=== PATIENT | female | born 1950 | race Caucasian/White ===

== ENCOUNTER 2023-04-24 12:57 | Inpatient (IN) | payer OTHER ==
[~2023-04-24] VITALS: Ht 149.9 cm; Wt 42.6 kg
[2023-04-24] MEDS: cefTRIAXone 2,000 MG in DEXTROSE 5% 100 ML IV ONE ×2 (09:55→21:55)
[~2023-04-24 12:57] MED LIST: GLIP10TA12 PO; LISI10TA2 PO; PRAV20TA46 PO; ROSI4TAB PO
[2023-04-24 13:32] VITALS: BP 79/45; PULSE 104; RESP 18; TEMP 98.7
[2023-04-24] MEDS ORDERED: NACL 0.9% 1,000 ML IV SCH (13:50)
[2023-04-24 14:28] LABS: BASOPHILS % (AUTO) 0.2 % (0.0-2.0); EOSINOPHILS # (AUTO) 0.3 K/uL (0-0.4); EOSINOPHILS % (AUTO) 2.9 % (0.0-4.0); HEMATOCRIT 40.3 % (36-48); HEMOGLOBIN 13.1 g/dL (12.0-16.0); LYMPHOCYTES # (AUTO) 0.8 K/uL (2.5-16.5); LYMPHOCYTES % (AUTO) 8.2 % (20.5-51.1); MEAN CORPUSCULAR HEMOGLOBIN 29 pg (27-31); MEAN CORPUSCULAR HGB CONC 33 g/dL (33-37); MEAN CORPUSCULAR VOLUME 87.8 fL (80-94); MONOCYTES # (AUTO) 0.3 K/uL (0.8-1.0); MONOCYTES % (AUTO) 2.7 % (1.7-9.3); NEUTROPHILS # (AUTO) 8.8 K/uL (1.8-7.7); PLATELET COUNT (AUTO) 260 K/uL (140-450); RED BLOOD CELL COUNT(AUTO) 4.59 MIL/uL (4.20-5.40); RED CELL DISTRIBUTION WIDTH 14.3 % (11.6-13.7); WHITE BLOOD COUNT (AUTO) 10.2 K/uL (4.8-10.8)
[2023-04-24 14:47] LABS: ALANINE AMINOTRANSFERASE 22 U/L (12-78); ALBUMIN 2.6 g/dL (3.4-5.0); ALKALINE PHOSPHATASE 75 U/L (50-136); ANION GAP 14.1 (8-16); ASPARTATE AMINOTRANSFERASE 18 U/L (15-37); CALCIUM 8.4 mg/dL (8.5-10.1); CARBON DIOXIDE 22.3 mmol/L (21-32); CHLORIDE 100 mmol/L (98-107); CREATININE 2.3 mg/dL (0.6-1.3); GLUCOSE 303 mg/dL (74-106); POTASSIUM 4.4 mmol/L (3.5-5.1); SODIUM SERUM 132 mmol/L (136-145); TOTAL BILIRUBIN 0.2 mg/dL (0.0-1.0); TOTAL PROTEIN, SERUM 6.7 g/dL (6.4-8.2)
[2023-04-24 14:51] LABS: CREATINE KINASE, TOTAL 100 U/L (26-192)
[2023-04-24 14:55] LABS: UREA NITROGEN, BLOOD 66 mg/dL (7-18)
[2023-04-24 14:56] LABS: LACTIC ACID 3.7 mmol/L (0.4-2.0)
[2023-04-24] MEDS ORDERED: NACL 0.9% 1,000 ML IV ONE (15:10)
[2023-04-24] MEDS ORDERED: ICOS1SGL PO (16:20)
[2023-04-24] MEDS ORDERED: LOSA25TA43 PO (16:20)
[2023-04-24] MEDS ORDERED: EMPA25TA PO (16:20)
[2023-04-24] MEDS ORDERED: METF-346 PO (16:20)
[2023-04-24] MEDS ORDERED: ATOR20TA PO (16:20)
[2023-04-24 17:37] LABS: APPEARANCE,URINE CLEAR (CLEAR); BILIRUBIN,URINE NEGATIVE (NEGATIVE); BLOOD, URINE NEGATIVE (NEGATIVE); COLOR,URINE YELLOW (YELLOW); LEUKOCYTE ESTERASE ,URINE NEGATIVE (NEGATIVE); NITRITE, URINE NEGATIVE (NEGATIVE); PROTEIN,URINE NEGATIVE (NEGATIVE); UGLUCOSE 3+ (NEGATIVE); UROBILINOGEN,URINE 0.2 EU/dL (0.2 - 1)
[2023-04-24] MEDS ORDERED: NOREPINEPHRINE 16 MG in DEXTROSE 5% 250 ML IV PRN (17:40)
[2023-04-24] MEDS ORDERED: NOREPINEPHRINE 4 MG in DEXTROSE 5% 250 ML IV ONE (17:45)
[2023-04-24] MEDS ORDERED: NOREPINEPHRINE 4 MG in DEXTROSE 5% 250 ML IV PRN (17:46)
[2023-04-24] MEDS ORDERED: DEXTROSE 50% 50 ML SYR IVP PRN (18:05)
[2023-04-24] MEDS ORDERED: MORPHINE SULFATE 2 MG/ML SYR IVP PRN (18:05)
[2023-04-24] MEDS ORDERED: DOCUSATE SODIUM 100 MG GELCAP PO PRN (18:05)
[2023-04-24] MEDS ORDERED: ONDANSETRON 4 MG/2 ML VIAL IVP PRN (18:05)
[2023-04-24] MEDS ORDERED: LORazepam 2 MG/ML VIAL IVP PRN (18:05)
[2023-04-24] MEDS ORDERED: ZOLPIDEM 5 MG TAB PO PRN (18:15)
[2023-04-24 20:00] VITALS: BP_SYST 101; BP_SYST 121; BP_DIAS 48; BP_DIAS 65; PULSE 105; PULSE 106; PULSE 82; PULSE 83; RESP 14; RESP 18; RESP 20; TEMP 96.7; TEMP 98.7; O2SAT 100; O2SAT 98
[2023-04-24 21:00] VITALS: BP 115/64; PULSE 68; RESP 12; O2SAT 100
[2023-04-24] MEDS: BLOOD GLUCOSE MONITORING 1 DEV DEV FS SCH (21:09)
[2023-04-24] MEDS ORDERED: cefTRIAXone 2,000 MG VIAL ONE (21:39)
[2023-04-24] MEDS: INSULIN LISPRO SLIDING SCALE 100 UNITS/ML VIAL SUBQ PRN (21:53)
[2023-04-24] MEDS: NACL 0.9% 1,000 ML IV SCH (21:59)
[2023-04-24 22:00] VITALS: BP 95/53; PULSE 98; RESP 17; O2SAT 98
[2023-04-24 23:00] VITALS: BP 87/44; PULSE 75; RESP 12; O2SAT 100
[2023-04-25] VITALS (23 sets, daily range): BP systolic 89–130; BP diastolic 41–77; PULSE 60–96; RESP 10–25; TEMP 96.4–97.8; O2SAT 96–100
[2023-04-25 04:39] LABS: HEMATOCRIT 31.9 % (36-48); HEMOGLOBIN 10.4 g/dL (12.0-16.0); MEAN CORPUSCULAR HEMOGLOBIN 28 pg (27-31); MEAN CORPUSCULAR HGB CONC 33 g/dL (33-37); MEAN CORPUSCULAR VOLUME 87.3 fL (80-94); PLATELET COUNT (AUTO) 234 K/uL (140-450); RED BLOOD CELL COUNT(AUTO) 3.66 MIL/uL (4.20-5.40); RED CELL DISTRIBUTION WIDTH 14.1 % (11.6-13.7); WHITE BLOOD COUNT (AUTO) 9.9 K/uL (4.8-10.8)
[2023-04-25 04:51] LABS: ANION GAP 10.5 (8-16); CALCIUM 7.4 mg/dL (8.5-10.1); CARBON DIOXIDE 22.9 mmol/L (21-32); CHLORIDE 111 mmol/L (98-107); CREATININE 1.2 mg/dL (0.6-1.3); GLUCOSE 166 mg/dL (74-106); POTASSIUM 3.4 mmol/L (3.5-5.1); SODIUM SERUM 141 mmol/L (136-145); UREA NITROGEN, BLOOD 43 mg/dL (7-18)
[2023-04-25 05:15] LABS: LYMPHOCYTES % (MANUAL) 13 % (20-46)
[2023-04-25 05:16] LABS: BASOPHILS % (MANUAL) 1 % (0-2); EOSINOPHILS % (MANUAL) 1 % (0-4); METAMYELOCYTES % 1 % (0-0); MONOCYTES % (MANUAL) 6 % (5-12); SMUDGE CELLS FEW
[2023-04-25] MEDS: BLOOD GLUCOSE MONITORING 1 DEV DEV FS SCH ×4 (07:05→20:11)
[2023-04-25] MEDS: MAG SULF 2000 MG/WATER PREMIX 50 ML IV PRN ×2 (07:56→15:31)
[2023-04-25] MEDS: POTASSIUM CHLORIDE 10 MEQ TABER PO PRN (08:00)
[2023-04-25] MEDS: NACL 0.9% 1,000 ML IV SCH ×2 (08:23→11:10)
[2023-04-25] MEDS: ATORVASTATIN 20 MG TAB PO SCH (09:34)
[2023-04-25 13:27] LABS: ALANINE AMINOTRANSFERASE 19 U/L (12-78); ALKALINE PHOSPHATASE 66 U/L (50-136); ANION GAP 10.6 (8-16); ASPARTATE AMINOTRANSFERASE 16 U/L (15-37); CALCIUM 7.7 mg/dL (8.5-10.1); CARBON DIOXIDE 22.3 mmol/L (21-32); CHLORIDE 111 mmol/L (98-107); GLUCOSE 212 mg/dL (74-106); MAGNESIUM 1.5 mg/dL (1.8-2.4); POTASSIUM 3.9 mmol/L (3.5-5.1); SODIUM SERUM 140 mmol/L (136-145); TOTAL BILIRUBIN 0.1 mg/dL (0.0-1.0); TOTAL PROTEIN, SERUM 5.7 g/dL (6.4-8.2); UREA NITROGEN, BLOOD 34 mg/dL (7-18)
[2023-04-25] MEDS: AZITHROMYCIN 500 MG in DEXTROSE 5% 250 ML IV SCH (13:45)
[2023-04-25] MEDS: INSULIN LISPRO SLIDING SCALE 100 UNITS/ML VIAL SUBQ PRN ×3 (16:38→20:19)
[2023-04-25] MEDS: MIDODRINE 5 MG TAB PO SCH (17:41)
[2023-04-25] MEDS ORDERED: MIDODRINE 5 MG TAB PO SCH (19:00)
[2023-04-26] VITALS (20 sets, daily range): BP systolic 90–132; BP diastolic 40–63; PULSE 52–78; RESP 12–20; TEMP 96.4–97.8; O2SAT 97–100
[2023-04-26] MEDS: NACL 0.9% 1,000 ML IV SCH ×2 (00:49→22:44)
[2023-04-26 05:03] LABS: ANION GAP 10.8 (8-16); CALCIUM 7.2 mg/dL (8.5-10.1); CARBON DIOXIDE 22.6 mmol/L (21-32); CHLORIDE 113 mmol/L (98-107); CREATININE 0.7 mg/dL (0.6-1.3); GLUCOSE 137 mg/dL (74-106); POTASSIUM 3.4 mmol/L (3.5-5.1); SODIUM SERUM 143 mmol/L (136-145); UREA NITROGEN, BLOOD 25 mg/dL (7-18)
[2023-04-26 05:41] LABS: BASOPHILS % (AUTO) 0.2 % (0.0-2.0); EOSINOPHILS # (AUTO) 0.3 K/uL (0-0.4); EOSINOPHILS % (AUTO) 3.6 % (0.0-4.0); HEMATOCRIT 26.4 % (36-48); HEMOGLOBIN 8.8 g/dL (12.0-16.0); LYMPHOCYTES # (AUTO) 0.9 K/uL (2.5-16.5); LYMPHOCYTES % (AUTO) 12.2 % (20.5-51.1); MEAN CORPUSCULAR HEMOGLOBIN 29 pg (27-31); MEAN CORPUSCULAR HGB CONC 33 g/dL (33-37); MEAN CORPUSCULAR VOLUME 87.4 fL (80-94); MONOCYTES # (AUTO) 0.4 K/uL (0.8-1.0); MONOCYTES % (AUTO) 4.7 % (1.7-9.3); NEUTROPHILS # (AUTO) 6.1 K/uL (1.8-7.7); NEUTROPHILS % (AUTO) 79.3 % (42.2-75.2); PLATELET COUNT (AUTO) 199 K/uL (140-450); RED BLOOD CELL COUNT(AUTO) 3.02 MIL/uL (4.20-5.40); RED CELL DISTRIBUTION WIDTH 13.9 % (11.6-13.7); WHITE BLOOD COUNT (AUTO) 7.7 K/uL (4.8-10.8)
[2023-04-26] MEDS: POTASSIUM CHLORIDE 10 MEQ TABER PO PRN (05:42)
[2023-04-26] MEDS: MAG SULF 2000 MG/WATER PREMIX 50 ML IV PRN (05:43)
[2023-04-26] MEDS: BLOOD GLUCOSE MONITORING 1 DEV DEV FS SCH ×4 (06:54→21:00)
[2023-04-26] MEDS: MIDODRINE 5 MG TAB PO SCH ×3 (08:45→17:06)
[2023-04-26] MEDS: PANTOPRAZOLE 40 MG INJ VIAL IVP SCH (08:48)
[2023-04-26] MEDS: ATORVASTATIN 20 MG TAB PO SCH (08:48)
[2023-04-26] MEDS: AZITHROMYCIN 500 MG in DEXTROSE 5% 250 ML IV SCH (12:38)
[2023-04-26] MEDS: INSULIN LISPRO SLIDING SCALE 100 UNITS/ML VIAL SUBQ PRN ×2 (12:40→22:07)
[2023-04-27] VITALS (8 sets, daily range): BP systolic 88–128; BP diastolic 42–62; PULSE 48–75; RESP 18; TEMP 97.8–98.3; O2SAT 98–100
[2023-04-27] MEDS: ACETAMINOPHEN 325 MG TAB PO PRN ×2 (01:27→02:58)
[2023-04-27] MEDS: NACL 0.9% 1,000 ML IV SCH ×3 (03:17→17:41)
[2023-04-27 06:50] LABS: BASOPHILS # (AUTO) 0.1 K/uL (0.00-0.22); BASOPHILS % (AUTO) 1.2 % (0.0-2.0); EOSINOPHILS # (AUTO) 1.3 K/uL (0-0.4); EOSINOPHILS % (AUTO) 15.3 % (0.0-4.0); HEMATOCRIT 30.4 % (36-48); LYMPHOCYTES # (AUTO) 1.4 K/uL (2.5-16.5); LYMPHOCYTES % (AUTO) 16.1 % (20.5-51.1); MEAN CORPUSCULAR HEMOGLOBIN 29 pg (27-31); MEAN CORPUSCULAR HGB CONC 33 g/dL (33-37); MEAN CORPUSCULAR VOLUME 86.8 fL (80-94); MONOCYTES # (AUTO) 0.4 K/uL (0.8-1.0); MONOCYTES % (AUTO) 4.8 % (1.7-9.3); NEUTROPHILS # (AUTO) 5.4 K/uL (1.8-7.7); NEUTROPHILS % (AUTO) 62.6 % (42.2-75.2); PLATELET COUNT (AUTO) 210 K/uL (140-450); RED CELL DISTRIBUTION WIDTH 13.9 % (11.6-13.7); WHITE BLOOD COUNT (AUTO) 8.7 K/uL (4.8-10.8)
[2023-04-27 06:55] LABS: ANION GAP 10.9 (8-16); CALCIUM 7.8 mg/dL (8.5-10.1); CARBON DIOXIDE 24.4 mmol/L (21-32); CHLORIDE 111 mmol/L (98-107); CREATININE 0.8 mg/dL (0.6-1.3); GLUCOSE 129 mg/dL (74-106); POTASSIUM 4.3 mmol/L (3.5-5.1); SODIUM SERUM 142 mmol/L (136-145); UREA NITROGEN, BLOOD 21 mg/dL (7-18)
[2023-04-27] MEDS: BLOOD GLUCOSE MONITORING 1 DEV DEV FS SCH ×4 (07:30→21:16)
[2023-04-27] MEDS: MIDODRINE 5 MG TAB PO SCH ×3 (08:53→17:30)
[2023-04-27] MEDS: ATORVASTATIN 20 MG TAB PO SCH (08:53)
[2023-04-27] MEDS: INSULIN LISPRO SLIDING SCALE 100 UNITS/ML VIAL SUBQ PRN ×3 (12:47→21:21)
[2023-04-27] MEDS: PANTOPRAZOLE 40 MG INJ VIAL IVP SCH (12:58)
[2023-04-27] MEDS: AZITHROMYCIN 500 MG in DEXTROSE 5% 250 ML IV SCH (12:58)
[2023-04-27] MEDS ORDERED: MIDODRINE 5 MG TAB ONE (17:34)
[2023-04-28] VITALS (7 sets, daily range): BP systolic 101–132; BP diastolic 40–57; PULSE 47–86; RESP 16–18; TEMP 96.1–98.1; O2SAT 96–100
[2023-04-28] MEDS: MAG SULF 2000 MG/WATER PREMIX 50 ML IV PRN (00:04)
[2023-04-28 06:35] LABS: HEMATOCRIT 34.4 % (36-48); HEMOGLOBIN 11.5 g/dL (12.0-16.0); MEAN CORPUSCULAR HEMOGLOBIN 29 pg (27-31); MEAN CORPUSCULAR HGB CONC 33 g/dL (33-37); MEAN CORPUSCULAR VOLUME 86.9 fL (80-94); PLATELET COUNT (AUTO) 278 K/uL (140-450); RED BLOOD CELL COUNT(AUTO) 3.96 MIL/uL (4.20-5.40); RED CELL DISTRIBUTION WIDTH 13.6 % (11.6-13.7); WHITE BLOOD COUNT (AUTO) 9.7 K/uL (4.8-10.8)
[2023-04-28 07:00] LABS: ANION GAP 13.1 (8-16); CARBON DIOXIDE 25.1 mmol/L (21-32); CHLORIDE 107 mmol/L (98-107); CREATININE 0.9 mg/dL (0.6-1.3); GLUCOSE 133 mg/dL (74-106); POTASSIUM 4.2 mmol/L (3.5-5.1); SODIUM SERUM 141 mmol/L (136-145); UREA NITROGEN, BLOOD 16 mg/dL (7-18)
[2023-04-28 07:16] LABS: MONOCYTES % (MANUAL) 7 % (5-12)
[2023-04-28 07:17] LABS: EOSINOPHILS % (MANUAL) 22 % (0-4)
[2023-04-28 07:19] LABS: LYMPHOCYTES % (MANUAL) 17 % (20-46)
[2023-04-28] MEDS: BLOOD GLUCOSE MONITORING 1 DEV DEV FS SCH ×4 (07:47→21:02)
[2023-04-28] MEDS: PANTOPRAZOLE 40 MG INJ VIAL IVP SCH (09:02)
[2023-04-28] MEDS: ATORVASTATIN 20 MG TAB PO SCH (09:38)
[2023-04-28] MEDS: MIDODRINE 5 MG TAB PO SCH ×3 (09:38→17:00)
[2023-04-28] MEDS: INSULIN LISPRO SLIDING SCALE 100 UNITS/ML VIAL SUBQ PRN ×3 (12:05→21:17)
[2023-04-28] MEDS: AZITHROMYCIN 500 MG in DEXTROSE 5% 250 ML IV SCH (14:01)
[2023-04-29] VITALS: BP 90/42; PULSE 62; RESP 18; TEMP 98.2; O2SAT 98
[2023-04-29 04:00] VITALS: BP 97/48; PULSE 61; PULSE 70; RESP 18; TEMP 98.6; O2SAT 96
[2023-04-29 06:44] LABS: HEMATOCRIT 35.3 % (36-48); HEMOGLOBIN 11.5 g/dL (12.0-16.0); MEAN CORPUSCULAR HEMOGLOBIN 29 pg (27-31); MEAN CORPUSCULAR HGB CONC 33 g/dL (33-37); MEAN CORPUSCULAR VOLUME 87.6 fL (80-94); PLATELET COUNT (AUTO) 273 K/uL (140-450); RED BLOOD CELL COUNT(AUTO) 4.02 MIL/uL (4.20-5.40); RED CELL DISTRIBUTION WIDTH 13.8 % (11.6-13.7); WHITE BLOOD COUNT (AUTO) 12.3 K/uL (4.8-10.8)
[2023-04-29 07:11] LABS: ANION GAP 10.6 (8-16); CALCIUM 8.3 mg/dL (8.5-10.1); CARBON DIOXIDE 26.2 mmol/L (21-32); CHLORIDE 109 mmol/L (98-107); CREATININE 0.8 mg/dL (0.6-1.3); GLUCOSE 148 mg/dL (74-106); POTASSIUM 4.8 mmol/L (3.5-5.1); SODIUM SERUM 141 mmol/L (136-145); UREA NITROGEN, BLOOD 15 mg/dL (7-18)
[2023-04-29 07:16] LABS: MAGNESIUM 1.3 mg/dL (1.8-2.4); PHOSPHORUS 3.4 mg/dL (2.5-4.9)
[2023-04-29] MEDS: BLOOD GLUCOSE MONITORING 1 DEV DEV FS SCH ×2 (07:22→11:49)
[2023-04-29 07:33] LABS: EOSINOPHILS % (MANUAL) 20 % (0-4); LYMPHOCYTES % (MANUAL) 18 % (20-46); MONOCYTES % (MANUAL) 6 % (5-12)
[2023-04-29 08:00] VITALS: BP 111/70; PULSE 71; PULSE 81; RESP 18; TEMP 98.6; O2SAT 95
[2023-04-29] MEDS: ATORVASTATIN 20 MG TAB PO SCH (08:48)
[2023-04-29] MEDS: MIDODRINE 5 MG TAB PO SCH ×2 (08:49→12:07)
[2023-04-29] MEDS: PANTOPRAZOLE 40 MG INJ VIAL IVP SCH (08:49)
[2023-04-29] MEDS: MAG SULF 2000 MG/WATER PREMIX 50 ML IV PRN (09:01)
[2023-04-29] MEDS ORDERED: LEVO750T75 PO (11:31)
[2023-04-29] MEDS: INSULIN LISPRO SLIDING SCALE 100 UNITS/ML VIAL SUBQ PRN (11:55)
[2023-04-29] MEDS: AZITHROMYCIN 500 MG in DEXTROSE 5% 250 ML IV SCH (12:05)
[2023-04-29 13:21] VITALS: BP 111/70; PULSE 71; RESP 18; TEMP 98.6
== END 2023-04-29 14:15 | disposition home or self-care (01) | DRG 871 ==
LOC: MED 12:57 → MIC 17:50 → MTU 04-26 19:03
PROVIDERS: ADMIT General Practice; ATTEND General Practice
PROC: 02HV33Z Insertion of Infusion Device into Superior Vena Cava, Percutaneous Approach (ICD-10-PCS; principal; 2023-04-25)
DX: A41.9 Sepsis, unspecified organism (principal); E43 Unspecified severe protein-calorie malnutrition; J18.9 Pneumonia, unspecified organism; N17.0 Acute kidney failure with tubular necrosis; R65.21 Severe sepsis with septic shock; Z68.1 Body mass index [BMI] 19.9 or less, adult; G93.49 Other encephalopathy; E87.1 Hypo-osmolality and hyponatremia; Z66 Do not resuscitate; E78.5 Hyperlipidemia, unspecified; N28.1 Cyst of kidney, acquired; E11.65 Type 2 diabetes mellitus with hyperglycemia; E86.1 Hypovolemia; E83.42 Hypomagnesemia; E87.6 Hypokalemia; E86.0 Dehydration; F79 Unspecified intellectual disabilities
CPT/HCPCS: 36415; 71045; 76770; 80048; 80053; 81003; 82272; 82550; 82948; 83036; 83605; 83735; 83880; 84100; 84484; 85025; 87040; 87081; 87086; 93005; 96360; 96361; 96374; 97116; 97163-GP; 97530; 99291; C9113; J0456; J0696; J1644; J1815; J3475; J3490; J7060; Q0092

== ENCOUNTER 2023-06-23 22:08 | Emergency (ER) | payer OTHER ==
[~2023-06-23] VITALS: Ht 160 cm; Wt 43.1 kg
[~2023-06-23 22:08] MED LIST changes: +ATOR20TA PO; +EMPA25TA PO; -GLIP10TA12 PO; +ICOS1SGL PO; +LEVO750T75 PO; -LISI10TA2 PO; +LOSA25TA43 PO; +METF-346 PO; -PRAV20TA46 PO; -ROSI4TAB PO
[2023-06-23 22:19] VITALS: BP 127/62; PULSE 75; RESP 16; TEMP 97.1; O2SAT 98
[2023-06-24 00:49] LABS: BASOPHILS # (AUTO) 0.1 K/uL (0.00-0.22); HEMOGLOBIN 12.9 g/dL (12.0-16.0); LYMPHOCYTES # (AUTO) 1.3 K/uL (2.5-16.5); NEUTROPHILS # (AUTO) 6.9 K/uL (1.8-7.7); NEUTROPHILS % (AUTO) 64.1 % (42.2-75.2); PLATELET COUNT (AUTO) 280 K/uL (140-450)
[2023-06-24 00:59] LABS: BASOPHILS % (AUTO) 0.5 % (0.0-2.0); EOSINOPHILS % (AUTO) 18.9 % (0.0-4.0); HEMATOCRIT 39.6 % (36-48); MEAN CORPUSCULAR HEMOGLOBIN 29 pg (27-31); MEAN CORPUSCULAR HGB CONC 33 g/dL (33-37); MEAN CORPUSCULAR VOLUME 88.2 fL (80-94); MONOCYTES # (AUTO) 0.5 K/uL (0.8-1.0); MONOCYTES % (AUTO) 4.5 % (1.7-9.3); RED BLOOD CELL COUNT(AUTO) 4.49 MIL/uL (4.20-5.40); RED CELL DISTRIBUTION WIDTH 14.8 % (11.6-13.7); WHITE BLOOD COUNT (AUTO) 10.7 K/uL (4.8-10.8)
[2023-06-24 01:08] LABS: LACTIC ACID 1.8 mmol/L (0.4-2.0)
[2023-06-24 01:15] LABS: ALANINE AMINOTRANSFERASE 18 U/L (12-78); ALBUMIN 3.5 g/dL (3.4-5.0); ALKALINE PHOSPHATASE 120 U/L (50-136); ANION GAP 12.7 (8-16); ASPARTATE AMINOTRANSFERASE 27 U/L (15-37); CALCIUM 8.9 mg/dL (8.5-10.1); CARBON DIOXIDE 28.4 mmol/L (21-32); CHLORIDE 99 mmol/L (98-107); CREATININE 0.9 mg/dL (0.6-1.3); GLUCOSE 155 mg/dL (74-106); POTASSIUM 4.1 mmol/L (3.5-5.1); SODIUM SERUM 136 mmol/L (136-145); TOTAL BILIRUBIN 0.4 mg/dL (0.0-1.0); TOTAL PROTEIN, SERUM 7.6 g/dL (6.4-8.2); UREA NITROGEN, BLOOD 18 mg/dL (7-18)
[2023-06-24 01:18] LABS: APPEARANCE,URINE CLEAR (CLEAR); BILIRUBIN,URINE NEGATIVE (NEGATIVE); BLOOD, URINE NEGATIVE (NEGATIVE); COLOR,URINE YELLOW (YELLOW); LEUKOCYTE ESTERASE ,URINE 1+ (NEGATIVE); NITRITE, URINE NEGATIVE (NEGATIVE); PROTEIN,URINE NEGATIVE (NEGATIVE); UGLUCOSE 3+ (NEGATIVE); UROBILINOGEN,URINE 0.2 EU/dL (0.2 - 1)
[2023-06-24 01:23] LABS: BACTERIA,URINE 10-30 (MOD) /HPF (None Seen); RBC,URINE 0-5 /HPF (0-5)
[2023-06-24 01:24] LABS: MUCUS,URINE 1+ /LPF (None Seen); SQUAMOUS EPITHELIAL CELL,UR 0-3 (FEW) /LPF (0-3 (FEW))
[2023-06-24] MEDS ORDERED: CIPR500T4 PO (03:08)
[2023-06-24] MEDS ORDERED: cefTRIAXone 1,000 MG VIAL ONE (03:13)
== END 2023-06-24 03:15 | disposition home or self-care (01) ==
LOC: MED 22:08
DX: S01.511A Laceration without foreign body of lip, initial encounter (principal); N39.0 Urinary tract infection, site not specified; L30.9 Dermatitis, unspecified; E11.9 Type 2 diabetes mellitus without complications; I10 Essential (primary) hypertension; Z79.899 Other long term (current) drug therapy; Z79.2 Long term (current) use of antibiotics; W18.39XA Other fall on same level, initial encounter; Y92.89 Other specified places as the place of occurrence of the external cause; Y93.89 Activity, other specified; Y99.8 Other external cause status
CPT/HCPCS: 36415; 70450; 71045; 72125; 72192; 80053; 81001; 83605; 85025; 87040; 87086; 93005; 96365; 99285; J0696

== ENCOUNTER 2023-08-05 08:58 | Inpatient (IN) | payer OTHER ==
[~2023-08-05] VITALS: Ht 152.4 cm; Wt 40.8 kg
[~2023-08-05 08:58] MED LIST changes: +CIPR500T4 PO
[2023-08-05 09:29] VITALS: BP 116/65; PULSE 78; RESP 18; TEMP 96.8; O2SAT 97
[2023-08-05 11:14] LABS: BASOPHILS % (AUTO) 0.5 % (0.0-2.0); EOSINOPHILS # (AUTO) 0.5 K/uL (0-0.4); EOSINOPHILS % (AUTO) 7.4 % (0.0-4.0); HEMATOCRIT 40.7 % (36-48); HEMOGLOBIN 13.6 g/dL (12.0-16.0); LYMPHOCYTES % (AUTO) 15.4 % (20.5-51.1); MEAN CORPUSCULAR HEMOGLOBIN 29 pg (27-31); MEAN CORPUSCULAR HGB CONC 33 g/dL (33-37); MEAN CORPUSCULAR VOLUME 86.6 fL (80-94); MONOCYTES # (AUTO) 0.2 K/uL (0.8-1.0); MONOCYTES % (AUTO) 3.2 % (1.7-9.3); NEUTROPHILS # (AUTO) 4.6 K/uL (1.8-7.7); NEUTROPHILS % (AUTO) 73.5 % (42.2-75.2); PLATELET COUNT (AUTO) 297 K/uL (140-450); RED BLOOD CELL COUNT(AUTO) 4.71 MIL/uL (4.20-5.40); RED CELL DISTRIBUTION WIDTH 15.2 % (11.6-13.7); WHITE BLOOD COUNT (AUTO) 6.2 K/uL (4.8-10.8)
[2023-08-05 11:37] LABS: ALANINE AMINOTRANSFERASE 34 U/L (12-78); ALBUMIN 3.1 g/dL (3.4-5.0); ALKALINE PHOSPHATASE 113 U/L (50-136); ASPARTATE AMINOTRANSFERASE 22 U/L (15-37); BILIRUBIN,DIRECT 0.1 mg/dL (0.0-0.3); TOTAL BILIRUBIN 0.3 mg/dL (0.0-1.0); TOTAL PROTEIN, SERUM 7.2 g/dL (6.4-8.2)
[2023-08-05 12:04] LABS: ANION GAP 9.6 (8-16); CALCIUM 8.7 mg/dL (8.5-10.1); CARBON DIOXIDE 30.7 mmol/L (21-32); CHLORIDE 101 mmol/L (98-107); CREATININE 0.7 mg/dL (0.6-1.3); GLUCOSE 149 mg/dL (74-106); POTASSIUM 4.3 mmol/L (3.5-5.1); SODIUM SERUM 137 mmol/L (136-145); UREA NITROGEN, BLOOD 20 mg/dL (7-18)
[2023-08-05] MEDS ORDERED: NACL 0.9% 1,000 ML IV ONE (12:35)
[2023-08-05] MEDS ORDERED: DEXT 5% /NACL 0.9% 1,000 ML IV ONE (13:25)
[2023-08-05] MEDS ORDERED: ACETAMINOPHEN 650 MG/20.3 ML UDC PO PRN (13:25)
[2023-08-05 15:49] LABS: APPEARANCE,URINE CLEAR (CLEAR); BILIRUBIN,URINE NEGATIVE (NEGATIVE); BLOOD, URINE NEGATIVE (NEGATIVE); COLOR,URINE YELLOW (YELLOW); LEUKOCYTE ESTERASE ,URINE NEGATIVE (NEGATIVE); NITRITE, URINE NEGATIVE (NEGATIVE); PROTEIN,URINE NEGATIVE (NEGATIVE); UGLUCOSE 3+ (NEGATIVE); UROBILINOGEN,URINE 0.2 EU/dL (0.2 - 1)
[2023-08-05] MEDS: NACL 0.9% 1,000 ML IV SCH (17:48)
[2023-08-05 18:55] VITALS: RESP 18; O2SAT 98
[2023-08-05 20:00] VITALS: BP 127/62; PULSE 68; RESP 18; TEMP 97.8; O2SAT 97; O2SAT 99
[2023-08-05] MEDS: TRIAMCINOLONE 0.1% CRM 15 GM TUBE TP SCH (21:28)
[2023-08-05] MEDS: methylPREDNISolone SS 40 MG/ML VIAL IVP SCH (22:01)
[2023-08-06 04:00] VITALS: BP 98/51; PULSE 75; RESP 18; TEMP 98.4; O2SAT 96
[2023-08-06] MEDS ORDERED: diphenhydrAMINE 50 MG/ML VIAL IVP PRN (07:50)
[2023-08-06 08:00] VITALS: BP 115/49; PULSE 74; RESP 16; TEMP 97.9; O2SAT 99
[2023-08-06] MEDS: methylPREDNISolone SS 40 MG/ML VIAL IVP SCH ×2 (08:26→21:44)
[2023-08-06] MEDS: ATORVASTATIN 20 MG TAB PO SCH (08:32)
[2023-08-06] MEDS: LOSARTAN 25 MG TAB PO SCH (08:32)
[2023-08-06] MEDS: TRIAMCINOLONE 0.1% CRM 15 GM TUBE TP SCH ×2 (08:33→20:28)
[2023-08-06 09:19] VITALS: PULSE 74; RESP 16; O2SAT 99
[2023-08-06 16:00] VITALS: BP 110/48; PULSE 78; RESP 18; TEMP 99.1; O2SAT 98
[2023-08-06] MEDS: NACL 0.9% 1,000 ML IV SCH (16:31)
[2023-08-06 20:00] VITALS: PULSE 70; RESP 18; O2SAT 99
[2023-08-06 21:09] VITALS: BP 120/49; PULSE 71; RESP 18; TEMP 97; O2SAT 99
[2023-08-07 04:00] VITALS: BP 117/57; PULSE 72; RESP 18; TEMP 98; O2SAT 98
[2023-08-07 06:31] LABS: BASOPHILS # (AUTO) 0.1 K/uL (0.00-0.22); BASOPHILS % (AUTO) 0.7 % (0.0-2.0); EOSINOPHILS % (AUTO) 0.5 % (0.0-4.0); HEMATOCRIT 37.2 % (36-48); HEMOGLOBIN 12.4 g/dL (12.0-16.0); LYMPHOCYTES # (AUTO) 1.4 K/uL (2.5-16.5); LYMPHOCYTES % (AUTO) 17.3 % (20.5-51.1); MEAN CORPUSCULAR HEMOGLOBIN 29 pg (27-31); MEAN CORPUSCULAR HGB CONC 33 g/dL (33-37); MEAN CORPUSCULAR VOLUME 86.6 fL (80-94); MONOCYTES # (AUTO) 0.2 K/uL (0.8-1.0); MONOCYTES % (AUTO) 2.7 % (1.7-9.3); NEUTROPHILS # (AUTO) 6.2 K/uL (1.8-7.7); NEUTROPHILS % (AUTO) 78.8 % (42.2-75.2); PLATELET COUNT (AUTO) 252 K/uL (140-450); RED CELL DISTRIBUTION WIDTH 14.9 % (11.6-13.7); WHITE BLOOD COUNT (AUTO) 7.9 K/uL (4.8-10.8)
[2023-08-07 06:53] LABS: ANION GAP 12.9 (8-16); CALCIUM 8.3 mg/dL (8.5-10.1); CARBON DIOXIDE 27.2 mmol/L (21-32); CHLORIDE 101 mmol/L (98-107); CREATININE 0.7 mg/dL (0.6-1.3); GLUCOSE 177 mg/dL (74-106); POTASSIUM 4.1 mmol/L (3.5-5.1); SODIUM SERUM 137 mmol/L (136-145); UREA NITROGEN, BLOOD 21 mg/dL (7-18)
[2023-08-07 08:00] VITALS: BP 119/55; PULSE 62; RESP 16; TEMP 97.4; O2SAT 95
[2023-08-07] MEDS: LOSARTAN 25 MG TAB PO SCH (08:48)
[2023-08-07] MEDS: TRIAMCINOLONE 0.1% CRM 15 GM TUBE TP SCH ×2 (08:48→20:41)
[2023-08-07] MEDS: ATORVASTATIN 20 MG TAB PO SCH (08:48)
[2023-08-07] MEDS: methylPREDNISolone SS 40 MG/ML VIAL IVP SCH ×2 (09:04→20:41)
[2023-08-07] MEDS: NACL 0.9% 1,000 ML IV SCH (09:14)
[2023-08-07 16:00] VITALS: BP 109/47; PULSE 65; RESP 16; TEMP 97.9; O2SAT 95
[2023-08-07 20:00] VITALS: BP 119/52; PULSE 71; RESP 16; RESP 18; TEMP 97.9; O2SAT 95
[2023-08-08] MEDS: NACL 0.9% 1,000 ML IV SCH (04:30)
[2023-08-08 05:06] VITALS: BP 121/57; PULSE 74; RESP 16; TEMP 97.4; O2SAT 95
[2023-08-08 08:00] VITALS: PULSE 80; RESP 18; O2SAT 99
[2023-08-08] MEDS ORDERED: PRED20TA6 PO (08:56)
[2023-08-08] MEDS: ATORVASTATIN 20 MG TAB PO SCH (09:12)
[2023-08-08] MEDS: LOSARTAN 25 MG TAB PO SCH (09:12)
[2023-08-08] MEDS: TRIAMCINOLONE 0.1% CRM 15 GM TUBE TP SCH (09:12)
[2023-08-08] MEDS: methylPREDNISolone SS 40 MG/ML VIAL IVP SCH (09:20)
[2023-08-08 12:46] VITALS: BP 116/57; PULSE 80; RESP 18; TEMP 98; O2SAT 99
[2023-08-08 13:29] VITALS: BP 116/57; PULSE 80; RESP 18; TEMP 98
== END 2023-08-08 15:00 | DRG 596 ==
LOC: MED 08:58 → MMU 13:28 → MTU 16:15
PROVIDERS: ADMIT Internal Medicine; ATTEND Internal Medicine
DX: L40.9 Psoriasis, unspecified (principal); Z68.1 Body mass index [BMI] 19.9 or less, adult; E44.0 Moderate protein-calorie malnutrition; R62.7 Adult failure to thrive; E86.0 Dehydration; E11.9 Type 2 diabetes mellitus without complications
CPT/HCPCS: 36415; 71045; 80048; 80076; 81003; 82948; 84484; 85025; 87081; 92526; 93005; 96360; 96361; 97112; 97163-GP; 97530; 99285; J2920